=== PATIENT | female | born 1995 | race Caucasian/White ===

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

== ENCOUNTER 2017-10-02 14:30 | Outpatient (CLI) | payer OTHER ==
--- NOTE | 2017-10-02 15:31 | Diagnostic Imaging Report ---
BREE CASTRO [facility] [address] [facility] [address] [address] Report Submission Date: Oct 02, 2017 3:09:33 PM LOAN SPECIALIST Patient Study Name: MATTHEW HERBERT Date: Oct 02, 2017 2:38:34 PM LOAN SPECIALIST Modality Type: CR Gender: F Description: PELVIS : 97 Institution: [facility] Physician: BREE CASTRO Examination: Plain film pelvis/ sacroiliac joints. History: Low back discomfort. Comparison exams: None provided Findings: 4 views of the pelvis and sacroiliac joints demonstrate smooth cortical margins. No fracture or fusion. No ossific spurring. Sacral ala are symmetric. Pelvic phleboliths. Impression: No acute osseous process. If suspect sacroiliitis, consider obtaining MRI to further evaluate. Electronically signed on Oct 02, 2017 3:09:33 PM LOAN SPECIALIST by: Karthik CAMPOS
--- NOTE | 2017-10-02 15:31 | Diagnostic Imaging Report ---
BREE CASTRO [facility] [address] [facility] [address] [address] Report Submission Date: Oct 02, 2017 3:04:37 PM POLICY ADVISOR Patient Study Name: MATTHEW HERBERT Date: Oct 02, 2017 2:37:10 PM POLICY ADVISOR Modality Type: CR Gender: F Description: SPINE : 89 Institution: [facility] Physician: BREE CASTRO Examination: Plain film lumbar spine History: Back discomfort Findings: 3 views of the lumbar spine demonstrate normal height. No anterior compression. No soft tissue abnormalities. Impression: No acute osseous process. If patient is experiencing neurologic symptoms, consider obtaining MRI to further evaluate. Electronically signed on Oct 02, 2017 3:04:37 PM POLICY ADVISOR by: Karthik CAMPOS
== END 2017-10-02 14:32 ==
LOC: RAD 14:30
PROVIDERS: ATTEND Family Medicine
DX: M53.3 Sacrococcygeal disorders, not elsewhere classified (principal)
CPT/HCPCS: 72100; 72202

== ENCOUNTER 2018-08-26 07:29 | Emergency (ER) | payer OTHER ==
[2018-08-26 08:08] VITALS: BP 108/67
[2018-08-26 08:17] LABS: APPEARANCE,URINE CLOUDY (CLEAR); COLOR,URINE YELLOW (YELLOW); OCCULT BLOOD,URINE 3+ (NEGATIVE); PH URINE 6.5 (5.0 - 8.0); UROBILINOGEN URINE 0.2 Eu (0.2-1.0)
--- NOTE | 2018-08-26 08:22 | ED Physician Documentation ---
General Adult - HISTORIAN Historian: patient - HPI Stated Complaint: Burning pain at urethra Chief Complaint: General Adult Additional Information: Burning with urination since 08/22. Denies frequency fever, abdominal pain. LNMP 08/13/2018. Sexually active with one partner. No barrier protection. OCP's. - ROS CONST: denies: fever - PAST HX Past History: none Allergies/Adverse Reactions: Allergies Allergy/AdvReac Type Severity Reaction Status Date / Time amoxicillin trihydrate Allergy Rash Verified 08/26/18 08:28 Home Medications: Ambulatory Orders Medication Instructions Recorded Loratadine [Claritin] 10 mg PO DAILY u2 12/29/16 Nitrofurantoin Monohyd/M-Cryst 100 mg PO Q12H #14 capsule 08/26/18 [Macrobid 100 mg Capsule] - SOCIAL HX Smoking History: non-smoker - FAMILY HX Family History: No (no signif) - VITAL SIGNS Vital Signs: Vital Signs Temp Pulse Resp BP Pulse Ox 98.0 F 74 16 108/67 100 08/26/18 07:45 08/26/18 07:45 08/26/18 07:45 08/26/18 07:45 08/26/18 07:45 - REVIEWED ASSESSMENTS Nursing Assessment Reviewed: Yes Vitals Reviewed: Yes ED Results Lab/Radiology - Lab Results Lab Results: Lab Results 08/26/18 08:00 Urine Color Yellow (YELLOW) Urine Appearance Cloudy H (CLEAR) Urine pH 6.5 (5.0 - 8.0) Ur Specific Topping 1.025 (1.010-1.030) Urine Protein Negative mg/dL mg/dL (NEGATIVE) Urine Ketones Negative mg/dL mg/dL (NEGATIVE) Urine Occult Blood 3+ H (NEGATIVE) Urine Nitrite Negative (NEGATIVE) Urine Bilirubin Negative (NEGATIVE) Urine Urobilinogen 0.2 Eu Eu (0.2-1.0) Ur Leukocyte Esterase 3+ H (NEGATIVE) Urine Glucose Negative mg/dL mg/dL (NEGATIVE) - Orders Orders: ED Orders Category Date Time Status CHLAMYDIA & GONORRHOEAE Stat Lab 08/26/18 Ordered URINALYSIS Routine Lab 08/26/18 08:00 Completed General Adult Physical Exam - PHYSICAL EXAM GENERAL APPEARANCE: no distress EENT: eye inspection normal, ENT inspection normal NECK: normal inspection, supple RESPIRATORY: no resp distress BACK: normal inspection (erect posture) SKIN: normal color EXTREMITIES: normal range of motion (gait and stance), no evidence of injury NEURO: CN's nml as tested, motor nml, sensation nml, cognition normal Discharge Clincal Impression: UTI (urinary tract infection) Qualifiers: Urinary tract infection type: acute cystitis Hematuria presence: with hematuria Qualified Code(s): N30.01 - Acute cystitis with hematuria Prescriptions: Nitrofurantoin Monohyd/M-Cryst [Macrobid 100 mg Capsule] 100 mg PO Q12H #14 capsule Referrals: Tari Rush MD [Primary Care Provider] - 2 Days Condition: Good Disposition: HOME, SELF-CARE Decision to Admit: NO Decision Time: 08:40
== END 2018-08-26 08:50 | disposition home or self-care (01) ==
LOC: ED 07:29
DX: N30.01 Acute cystitis with hematuria (principal)
CPT/HCPCS: 81002; 87086; 99282; 99283